=== PATIENT | female | born 1995 | race Caucasian/White ===

== ENCOUNTER → 2022-08-18 | Outpatient (CLI) | payer OTHER | LOC: M WHC 08:34 | PROVIDERS: ATTEND Registered Nurse | DX: Z34.82 Encounter for supervision of other normal pregnancy, second trimester (principal) ==

== ENCOUNTER → 2022-09-15 | Outpatient (CLI) | payer OTHER | LOC: M WHC 09:07 → EDUNIT# 09:30 | PROVIDERS: ATTEND Registered Nurse | DX: Z36.2 Encounter for other antenatal screening follow-up (principal); Z3A.34 34 weeks gestation of pregnancy ==

== ENCOUNTER 2022-10-16 01:02 | Inpatient (IN) | payer OTHER ==
[~2022-10-16] VITALS: Ht 152.4 cm; Wt 96.8 kg
[2022-10-16] MEDS ORDERED: OXYTOCIN 30UNITS IN 0.9% NaCl 500ML IV BAG As Ordered ONE (01:19)
[2022-10-16] MEDS ORDERED: LR 1,000 ML IV SCH (01:20)
[2022-10-16] MEDS ORDERED: METHYLERGONOVINE MALEATE 0.2MG/ML 1ML VIAL IM PRN (01:20)
[2022-10-16] MEDS ORDERED: TRANEXAMIC ACID INJection 1,000 MG in NS 100 ML IV PRN (01:20)
[2022-10-16] MEDS ORDERED: LIDOCAINE 1% MDV 20ML VIAL INFIL PRN (01:20)
[2022-10-16] MEDS ORDERED: OXYTOCIN DRIP 30 UNITS in IV 1 EA IV PRN ×4 (01:20)
[2022-10-16] MEDS ORDERED: OXYTOCIN INJ 10UNITS/ML 1ML VIAL As Ordered ONE (01:37)
[2022-10-16 02:23] LABS: HEMATOCRIT 37.3 % (36.0-47.0); HEMOGLOBIN 12.9 g/dl (12.0-15.5); MEAN CORPUSCULAR HEMOGLOBIN 31.2 pg (27.0-33.0); MEAN CORPUSCULAR HGB CONC 34.6 g/dl (32.0-36.5); MEAN CORPUSCULAR VOLUME 90.1 fl (80.0-96.0); PLATELET COUNT, AUTOMATED 246 10^3/uL (150-450); RED BLOOD COUNT 4.14 10^6/uL (4.00-5.40); WHITE BLOOD COUNT 14.5 10^3/uL (4.0-10.0)
[2022-10-16] MEDS ORDERED: OXYTOCIN INJ 10UNITS/ML 1ML VIAL IM ONE (02:30)
[2022-10-16 02:44] LABS: CORD GAS ABE V -4.4; CORD GAS HCO3 A 24.9 MEQ/L; CORD GAS HCO3 V 22.2 MEQ/L; CORD GAS O2 SAT A 79.3 %; CORD GAS O2 SAT V 87.7 %; CORD GAS PCO2 A 70.1 mmHg; CORD GAS PCO2 V 46.1 mmHg; CORD GAS PH A 7.169 UNITS; CORD GAS PH V 7.301 UNITS; CORD GAS PO2 A 42.1 mmHg; CORD GAS PO2 V 46.6 mmHg; CORD GAS SBC A 19.2 MEQ/L; CORD GAS SBC V 20.6 MEQ/L; CORD GAS TCO2 A 27.1 MEQ/L; CORD GAS TCO2 V 23.6 MEQ/L
[2022-10-16] MEDS ORDERED: RHOGAM 300MCG (1500IU) INJ IM SCH (03:30)
[2022-10-16] MEDS ORDERED: DOCUSATE SODIUM 100MG CAPSULE PO PRN (03:30)
[2022-10-16] MEDS ORDERED: METHYLERGONOVINE MALEATE 0.2 MG TAB PO PRN (03:30)
[2022-10-16] MEDS ORDERED: METOCLOPRAMIDE INJ 10MG/2ML VIAL IV PRN (03:30)
[2022-10-16] MEDS ORDERED: ONDANSETRON 4MG 2ML VIAL IV PRN (03:30)
[2022-10-16] MEDS ORDERED: DIBUCAINE 1% OINTMENT 30GM TOP PRN (03:30)
[2022-10-16] MEDS ORDERED: ANUSOL HC CREAM 30GM TOP PRN (03:30)
[2022-10-16] MEDS: LR 1,000 ML IV SCH ×3 (03:30→17:51)
[2022-10-16] MEDS: ACETAMINOPHEN 500 MG TAB PO SCH ×4 (04:00→22:38)
[2022-10-16 06:00] VITALS: BP 118/61
[2022-10-16 07:50] VITALS: BP 118/61
[2022-10-16] MEDS: PRENATAL VITAMINS CHEWABLE TABLET PO SCH (09:18)
[2022-10-16] MEDS: IBUPROFEN 800 MG TAB PO SCH ×2 (09:19→18:00)
[2022-10-16] MEDS ORDERED: PRENTAB9 PO (10:03)
[2022-10-16] MEDS ORDERED: ASPI81CH33 PO (10:03)
[2022-10-16 18:00] VITALS: BP 116/71
[2022-10-17] MEDS: IBUPROFEN 800 MG TAB PO SCH ×3 (01:54→17:23)
[2022-10-17] MEDS: ACETAMINOPHEN 500 MG TAB PO SCH ×4 (04:02→21:54)
[2022-10-17 06:00] VITALS: BP 124/83
[2022-10-17 07:02] LABS: HEMATOCRIT 29.6 % (36.0-47.0); MEAN CORPUSCULAR HEMOGLOBIN 31.3 pg (27.0-33.0); MEAN CORPUSCULAR HGB CONC 33.8 g/dl (32.0-36.5); MEAN CORPUSCULAR VOLUME 92.8 fl (80.0-96.0); PLATELET COUNT, AUTOMATED 197 10^3/uL (150-450); RED BLOOD COUNT 3.19 10^6/uL (4.00-5.40); WHITE BLOOD COUNT 9.5 10^3/uL (4.0-10.0)
[2022-10-17] MEDS: PRENATAL VITAMINS CHEWABLE TABLET PO SCH (09:46)
[2022-10-17 18:00] VITALS: BP 122/66
[2022-10-18] MEDS: IBUPROFEN 800 MG TAB PO SCH ×2 (01:51→09:06)
[2022-10-18] MEDS: ACETAMINOPHEN 500 MG TAB PO SCH ×2 (04:00→09:06)
[2022-10-18 06:00] VITALS: BP 124/72
[2022-10-18] MEDS ORDERED: MEASLES,MUMPS,RUBELLA VACCINE INJ (MMR-II) SC.IMMUN ONE (09:00)
[2022-10-18] MEDS: PRENATAL VITAMINS CHEWABLE TABLET PO SCH (09:05)
== END 2022-10-18 11:40 | disposition home or self-care (01) | DRG 807 ==
LOC: M LDO 01:02 → M LDI 01:12 → M OBS 05:19
PROVIDERS: ADMIT Obstetrics & Gynecology; ATTEND Obstetrics & Gynecology
PROC: 10E0XZZ Delivery of Products of Conception, External Approach (ICD-10-PCS; principal; 2022-10-16)
PROC: 0KQM0ZZ Repair Perineum Muscle, Open Approach (ICD-10-PCS; 2022-10-16)
DX: O70.1 Second degree perineal laceration during delivery (principal); Z37.0 Single live birth; Z3A.39 39 weeks gestation of pregnancy